=== PATIENT | female | born 1955 | race Caucasian/White ===

== ENCOUNTER 2019-06-16 13:44 | Outpatient (REF) | payer OTHER, MEDICARE, SELFPAY ==
[2019-06-16 21:28] LABS: Magnesium 1.8 mg/dL (1.8-2.4)
== END 2019-06-16 14:04 ==
LOC: NCHCN 13:44
PROVIDERS: PCP Nurse Practitioner Family; Visit Provider Nurse Practitioner Family
DX: J44.1 Chronic obstructive pulmonary disease with (acute) exacerbation (principal); R25.2 Cramp and spasm; F17.200 Nicotine dependence, unspecified, uncomplicated
CPT/HCPCS: 83735

== ENCOUNTER 2020-01-15 14:02 | Outpatient (REF) | payer OTHER, SELFPAY ==
[2020-01-15 21:03] LABS: Anion Gap 8.1 mmol/L (3-11); BUN 28 mg/dL (7-18); CO2 29.9 mmol/L (21.0-32.0); CREATININE 1.53 mg/dL (0.55-1.02); Calcium 9.2 mg/dL (8.5-10.1); Chloride 105 mmol/L (98-107); Estimated GFR 33.96 (mL/min/1.73m2); Glucose 87 mg/dL (74-106); Potassium 4.4 mmol/L (3.5-5.1); Sodium 143 mmol/L (136-145)
== END 2020-01-15 14:22 ==
LOC: NCHCN 14:02
PROVIDERS: PCP Nurse Practitioner Family; Visit Provider Nurse Practitioner Family
DX: I25.10 Atherosclerotic heart disease of native coronary artery without angina pectoris (principal); N11.9 Chronic tubulo-interstitial nephritis, unspecified
CPT/HCPCS: 80048

== ENCOUNTER 2020-03-14 13:01 | Outpatient (REF) | payer OTHER, SELFPAY ==
[2020-03-14 21:41] LABS: NT-proBNP 398 pg/mL (<300)
== END 2020-03-14 13:21 ==
LOC: NCHCN 13:01
PROVIDERS: PCP Nurse Practitioner Family; Visit Provider Nurse Practitioner Family
DX: I50.9 Heart failure, unspecified (principal)
CPT/HCPCS: 80048; 83880

== ENCOUNTER 2020-03-15 14:56 | Outpatient (REF) | payer OTHER, SELFPAY ==
[2020-03-15 20:47] LABS: Anion Gap 6.3 mmol/L (3-11); BUN 24 mg/dL (7-18); CO2 29.7 mmol/L (21.0-32.0); CREATININE 1.31 mg/dL (0.55-1.02); Calcium 8.7 mg/dL (8.5-10.1); Chloride 107 mmol/L (98-107); Estimated GFR 40.62 (mL/min/1.73m2); Glucose 105 mg/dL (74-106); Potassium 4.2 mmol/L (3.5-5.1); Sodium 143 mmol/L (136-145)
== END 2020-03-15 15:16 ==
LOC: NCHCN 14:56
PROVIDERS: PCP Nurse Practitioner Family; Visit Provider Nurse Practitioner Family
DX: R22.41 Localized swelling, mass and lump, right lower limb (principal); I25.2 Old myocardial infarction
CPT/HCPCS: 80048

== ENCOUNTER 2020-06-02 15:46 | Outpatient (REF) | payer OTHER, SELFPAY ==
[2020-06-06 10:05] LABS: Patient Race White; SARS-CoV-2 RNA Undetected (Undetected); SARS-CoV-2 Specimen Source Nasal
== END 2020-06-02 16:06 ==
LOC: NCHCN 15:46
PROVIDERS: PCP Nurse Practitioner Family; Visit Provider Nurse Practitioner Family
DX: R05 Cough (principal)
CPT/HCPCS: U0003

== ENCOUNTER 2020-12-19 16:42 | Outpatient (REF) | payer OTHER, SELFPAY ==
[2020-12-19 21:19] LABS: HCT 38.3 % (36.0-46.0); HGB 11.7 g/dL (11.2-15.7); MCH 25.9 pg (27.0-33.0); MCHC 30.5 % (32.0-36.0); MCV 84.7 fL (80-95); MPV 10.2 fL (8.0-11.0); Platelet Count 231 10^3/uL (130-400); RBC 4.52 10^6/uL (3.93-5.22); RDW 14.7 % (11.7-14.6); WBC 7.47 10^3/uL (4.4-10.8)
[2020-12-19 21:37] LABS: Hemoglobin A1C 6.2 % (<5.7)
[2020-12-19 21:58] LABS: ALT 22 U/L (14-59); AST 23 U/L (15-37); Albumin 3.9 g/dL (3.4-5.0); Alkaline Phosphatase 190 U/L (46-116); Anion Gap 8.8 mmol/L (3-11); BUN 22 mg/dL (7-18); Bilirubin, Total 0.4 mg/dL (0.2-1.0); CO2 27.2 mmol/L (21.0-32.0); CREATININE 1.4 mg/dL (0.55-1.02); Calcium 9.1 mg/dL (8.5-10.1); Chloride 107 mmol/L (98-107); Estimated GFR 37.51 (mL/min/1.73m2); Glucose 81 mg/dL (74-106); Potassium 4.3 mmol/L (3.5-5.1); Sodium 143 mmol/L (136-145); TSH 0.43 uIU/mL (0.36-3.74); Total Protein 7.5 g/dL (6.4-8.2); Vitamin B12 462 pg/mL (193-986)
== END 2020-12-19 16:43 | disposition home or self-care (01) ==
LOC: NCHCN 16:42
PROVIDERS: PCP Nurse Practitioner Family; Visit Provider Nurse Practitioner Family
DX: I10 Essential (primary) hypertension (principal); R73.9 Hyperglycemia, unspecified; K21.9 Gastro-esophageal reflux disease without esophagitis; K80.20 Calculus of gallbladder without cholecystitis without obstruction; Z79.01 Long term (current) use of anticoagulants; Z79.899 Other long term (current) drug therapy
CPT/HCPCS: 80053; 85027; 82607; 83036; 84443

== ENCOUNTER 2021-06-06 15:02 | Emergency (ER) | payer OTHER, SELFPAY ==
[2021-06-06] VITALS (22 sets, daily range): BP systolic 110–189; BP diastolic 60–93; PULSE 81–103; RESP 15–26; TEMP 36.8; O2SAT 90–100
--- NOTE | 2021-06-06 07:45 | RT.EKG_ITS ---
APPROVED REPORT Exam: Resting ECG Reason for Exam: new sob Patient Location: E HR:88 bpm ECG Measurements Heart Rate 88 AXIS PA 197 P -55 QRSd 92 QRS 42 QT 374 T 44 QTc 450 Conclusion Sinus or ectopic atrial rhythm...P axis (-45,135) Atrial premature complex...SV complex w/ short R-R interval
[2021-06-06 15:25] LABS: Bilirubin Negative (Negative); Blood Negative (Negative); Clarity Sl Cloudy (Clear); Glucose Negative (Negative); Ketones Negative (Negative); Leukocyte Esterase Small (Negative); Nitrite Positive (Negative); Urobilinogen 0.2 EU/dL (Up TO 0.2)
[2021-06-06 15:37] LABS: Bacteria Packed HPF (Negative); C & S Indicated? Yes; Crystals Negative HPF (Negative); Epithelial Cells Moderate HPF (Negative); Mucus Negative (Negative); RBC 0-2 HPF (0-2); WBC 20-50 HPF (0-5)
--- NOTE | 2021-06-06 15:45 | DI.CT_ITS ---
Exam(s) CT ABDOMEN PELVIS WO EXAM: CT ABDOMEN PELVIS WO CLINICAL HISTORY: RUQ abd pain, nausea vomiting, s/p monqiue in February. TECHNIQUE: Imaging Protocol: Axial computed tomography images with coronal and sagittal reformatted images were created and reviewed CONTRAST MATERIAL: Intravenous: none Oral: None COMPARISON: No exams were available for comparison FINDINGS: VISUALIZED LUNG BASES: No nodules nor pleural effusions evident. ABDOMEN: There is no ascites. LIVER: There are no obvious focal hepatic lesions evident of this noninfused study. GALLBLADDER/BILIARY/: The gallbladder is surgically absent. CBD diameter is prominent, measuring 1.3 cm just above the pancreatic head and 10 millimeters at the pancreatic head level. Subtle hypodense area noted in the uncinate process of the pancreas measuring 10 x 9 millimeters, possibly significan t. No other focal pancreatic findings evident on this noninfused study. The pancreatic duct is not dilated.. PANCREAS: ABOVE SPLEEN: Spleen is not enlarged. No obvious intrasplenic lesions. ADRENALS: There are no significant adrenal masses. KIDNEYS:No cysts evident. No solid renal masses. No calculi nor hydronephrosis.. Small calcification s medial to both kidneys are most probably vascular. ABDOMINAL AORTA: Calcified but not enlarged. LYMPH NODES: There is no retroperitoneal nor paraaortic adenopathy. ABDOMINAL WALL: No evidence of significant anterior abdominal wall nor inguinal hernia. GI: There is no evidence of bowel obstruction, free air, nor abscess. PELVIS: LYMPH NODES: There is no intrapelvic nor inguinal adenopathy. GI: The appendix is surgically absent.No evidence of sigmoid diverticulitis. URINARY BLADDER: No calculi nor obvious masses evident REPRODUCTIVE: Uterus and adnexal regions appear unremarkable. No free fluid. OSSEOUS: No significant osseous lesions. IMPRESSION: 1. Gallbladder surgically absent. CBD diameter is prominent measuring 13 millimeters proximally and 10 millimeters at the pancreatic head level. No obvious radiopaque calculus in the lower CBD. Howev er, there is a subtle 10 x 9 millimeter area of hypodensity in the uncinate process of the pancreas, possibly significant. This is difficult to evaluate accurately without IV contrast.. If this patien t cannot receive iodinated IV contrast for CT than MRI and MRCP would be recommended for follow-up of these findings related to the CBD/pancreas. 2. Appendix is surgically absent. No collection at this level. Also no evidence of diverticulitis. No bowel obstruction Study 1st read by [facility]. Final report called by myself to ER provider Saturday06/06/2021 6:50 p.m. RADIATION DOSE DELIVERED: 1,144.55mGy.cm Total DLP DATA REPOSITORY: All CT scans at this facility are submitted to the National Radiology Data Registry (NRDR) Dose Index Registry (DIR) with the [employer] (ACR). RADIATION OPTIMIZATION: All CT scans at this facility use at least one of these dose optimization te chniques: automated exposure control; mA and/or kV adjustment per patient size (includes targeted exa ms where dose is matched to clinical indication); or iterative reconstruction.
[2021-06-06 15:49] LABS: Abs Immature Grans 0.04 10^3/uL (0.0-0.06); Absolute Basophil Count 0.06 10^3/uL (0.0-0.2); Absolute Lymphocyte Count 2.45 10^3/uL (1.2-3.4); Absolute Monocyte Count 0.48 10^3/uL (0.1-0.8); Absolute Neutrophil Count 5.45 10^3/uL (1.2-6.7); Basophils % 0.7; Eosinophils % 2.3; HCT 43.7 % (36.0-46.0); HGB 13.6 g/dL (11.2-15.7); Immature Grans % 0.5; Lymphocytes % 28.2; MCH 25.6 pg (27.0-33.0); MCHC 31.1 % (32.0-36.0); MCV 82.1 fL (80-95); MPV 9.6 fL (8.0-11.0); Monocytes % 5.5; Neutrophils % 62.8; Nucleated RBC 0 %; Platelet Count 241 10^3/uL (130-400); RBC 5.32 10^6/uL (3.93-5.22); RDW 15.1 % (11.7-14.6); RDW-SD 45.3 fL; WBC 8.68 10^3/uL (4.4-10.8)
--- NOTE | 2021-06-06 15:54 | W.ED.GENAD ---
Discharge Plan Disposition Patient Disposition: HOME Condition: Stable Discharge Details Clinical Impression: Acute UTI, Abdominal pain Primary Care Provider: Karla Paul ED Provider: Ml Stanley Home Meds and New Rx's Prescriptions: New nitrofurantoin monohyd/m-cryst [Macrobid] 100 mg capsule 100 mg PO Q12H 7 Days Qty: 14 RF: 0 No Action atorvastatin 20 mg tablet 20 mg PO QHS RF: 0 ipratropium-albuterol 0.5 mg-3 mg(2.5 mg base)/3 mL solution for nebulization 3 ml INHALATION Q4H PRNRF: 0 omeprazole 40 mg capsule,delayed release(DR/EC) 40 mg PO BID RF: 0 tramadol 50 mg tablet 50 - 100 mg PO TID PRNRF: 0 triamcinolone acetonide 0.1 % cream 1 applic TOPICAL BID RF: 0 aspirin 81 mg Capsule,Delayed Release(Dr/Ec) 81 mg PO DAILY RF: 0 promethazine 25 mg tablet 25 mg PO BID PRNRF: 0 losartan 25 mg tablet 25 mg PO BID RF: 0 nitroglycerin 0.4 mg tablet, sublingual 0.4 mg sublingual DIRECTED PRNRF: 0 gabapentin 100 mg capsule 100 mg PO BID RF: 0 epinephrine [Epi E-Z Pen] 0.3 mg/0.3 mL Auto-Injector 0.3 mg IM Q5-15M PRNRF: 0 albuterol sulfate 90 mcg/actuation HFA aerosol inhaler 2 inh INHALATION Q4H PRNRF: 0 metoprolol tartrate 25 mg tablet 25 mg PO BID RF: 0 Xarelto 10 mg tablet 10 mg PO DAILY RF: 0 Anoro Ellipta 62.5-25 mcg/actuation blister with device 1 inh INHALATION DAILY RF: 0 Discharge Instructions Instructions: Urinary Tract Infection in Women (ED), Abdominal Pain (ED) Additional Instructions: At this time CT shows possible widening of your common bile duct which can be a normal finding after the surgery. Recommend that you have an MRCP as an outpatient. Please discuss this with your surgeon at [facility]. You also have a urinary tract infection. Clear liquids for the next 48 to 72 hours bland diet advance as tolerated. Please return to the ER for any more vomiting, fever, worsening shortness of breath or worsening pain not relieved by Tylenol or ibuprofen. Stay away from anything fried fatty spicy or dairy. Follow up with primary care provider in 3-5 days. Return to ED sooner if any worsening or concerns. Increase oral fluids. Please take Tylenol or Ibuprofen with food every 4-6 hours as needed for pain and swelling. Referrals: Karla Paul [Primary Care Provider] - 3 days Discharge Data Discharge Date/Time-TO BE ENTERED AT DEPARTURE: 06/06/21 19:28 Medical Decision Making 48-year-old female presents to the ER with chief right upper quadrant abdominal which is intermittent. She reports this got worse yesterday. She is status post cholecystectomy at [facility] in February of this year. She does report nausea and vomiting x1. He denies any diarrhea. Denies any new chest pain or new shortness of breath. She does have COPD inhalers every day she does report using her inhalers as prescribed. She denies any cough or fever or chills. She does have some expiratory wheezes noted on exam. Right upper quadrant tenderness with palpation. She has a past under past medical history includes high cholesterol, high blood pressure, GERD. At this time cardiac work-up included serial troponins EKG check labs including a lipase, CT abdomen pelvis morphine and Zofran. Differential diagnosis includes but not limited to pneumonia, COPD exacerbation, postop complication related to cholecystectomy, CBC shows no leukocytosis or signs of infection, renal function at patient's baseline. Alk phos is elevated at 194, urine shows positive nitrite small leukocytes 20-50 WBCs culture is pending at time. CT results as noted below. Imaging protocol: XR of the chest. Views: 2 views. COMPARISON: No relevant prior studies available. FINDINGS: Lungs: Unremarkable. No consolidation. Pleural spaces: Unremarkable. No pleural effusion. No pneumothorax. Heart/Mediastinum: Unremarkable. No cardiomegaly. Bones/joints: Reverse left shoulder arthroplasty. IMPRESSION: No acute findings Exam: CT Abdomen And Pelvis Without Contrast TECHNIQUE: Imaging protocol: Computed tomography of the abdomen and pelvis without contrast. COMPARISON: CR XR CHEST 2V PA LATERAL 06/06/2021 5:45 PM FINDINGS: Lungs: The lung bases are clear. Pleural spaces: No pleural effusion. Heart: The heart is normal in size. Trace pericardial fluid. Mediastinal space: Mild wall thickening within the distal esophagus. Small sliding hiatal hernia. Liver: The liver is normal in size and has a slightly lobulated appearance. Gallbladder and bile ducts: The gallbladder is surgically absent. No bile duct dilatation. The common bile duct is slightly prominent measuring up to 1.1 cm in diameter. This is within expected normal postoperative limits. Pancreas: The pancreas is normal appearance. No pancreatic ductal dilatation. Spleen: The spleen is normal in size and appearance. Adrenal glands: The bilateral adrenal glands are normal appearance. Kidneys and ureters: The bilateral kidneys are atrophic with cortical thinning and areas of cortical scarring. 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 No hydronephrosis. Stomach and bowel: Mild wall thickening is seen within the gastric folds and gastric antrum. The small bowel is nondilated and fluid-filled. A moderate amount of stool and air seen throughout the colon to the level of the rectum. No bowel obstruction or pneumatosis. Appendix: No evidence of appendicitis. Intraperitoneal space: No free fluid, free air or abscess. Vasculature: Moderate atherosclerotic calcifications within the abdominal aorta without aneurysm. Extensive atherosclerotic calcifications are seen within the origin of the right common iliac artery, likely resulting in severe stenosis. Please note, evaluation is limited on this noncontrast study. Lymph nodes: Unremarkable. No enlarged lymph nodes. Urinary bladder: The urinary bladder is normal appearance. Reproductive: The uterus and bilateral ovaries are normal appearance. Bones/joints: Mild degenerative changes throughout the lower thoracic and lumbar spine. No acute compression fracture. Soft tissues: Unremarkable. IMPRESSION: Findings suggestive of an infectious or inflammatory gastroenteritis. No bowel obstruction, abscess, free air or perforation. Probable mild distal esophagitis. Sliding hiatal hernia. Thank you for allowing us to participate in the care of your patient. Dictated and Authenticated by: Shauna Wong MD Spoke with Dr. Vinson radiologist who recommends an outpatient MRCP. He does not appreciate any infectious or inflammatory gastroenteritis at this time as noted in the V rad reading above. These recommendations were relayed to the patient. Instructed to follow-up with PCP and surgeon at [facility] regarding this. Patient hemodynamically stable discharge from the department. Instructed on diet and alternating ibuprofen Tylenol. HPI General Date/Time Provider Initiated Documentation: 06/06/21 15:11. Limitations to Documentation: no limitations. Information obtained by: patient and RN notes reviewed. HPI Narrative: 48-year-old female presents to the ER with chief right upper quadrant abdominal which is intermittent. She reports this got worse yesterday. She is status post cholecystectomy at [facility] in February of this year. She does report nausea and vomiting x1. He denies any diarrhea. Denies any new chest pain or new shortness of breath. She does have COPD inhalers every day she does report using her inhalers as prescribed. She denies any cough or fever or chills. She does have some expiratory wheezes noted on exam. Right upper quadrant tenderness with palpation. She has a past under past medical history includes high cholesterol, high blood pressure, GERD. Related Data Home Medications Medication Instructions Recorded Confirmed albuterol sulfate 2 inh INHALATION Q4H PRN 06/06/21 06/06/21 aspirin 81 mg PO DAILY 06/06/21 06/06/21 atorvastatin 20 mg PO QHS 06/06/21 06/06/21 epinephrine [Epi E-Z Pen] 0.3 mg IM Q5-15M PRN 06/06/21 06/06/21 gabapentin 100 mg PO BID 06/06/21 06/06/21 ipratropium-albuterol 3 ml INHALATION Q4H PRN 06/06/21 06/06/21 losartan 25 mg PO BID 06/06/21 06/06/21 metoprolol tartrate 25 mg PO BID 06/06/21 06/06/21 nitrofurantoin monohyd/m-cryst 100 mg PO Q12H 7 Days #14 cap 06/06/21 [Macrobid] nitroglycerin 0.4 mg SUBLINGUAL DIRECTED PRN 06/06/21 06/06/21 omeprazole 40 mg PO BID 06/06/21 06/06/21 promethazine 25 mg PO BID PRN 06/06/21 06/06/21 rivaroxaban [Xarelto] 10 mg PO DAILY 06/06/21 06/06/21 tramadol 50 - 100 mg PO TID PRN 06/06/21 06/06/21 triamcinolone acetonide 1 applic TOPICAL BID 06/06/21 06/06/21 umeclidinium-vilanterol [Anoro 1 inh INHALATION DAILY 06/06/21 06/06/21 Ellipta] Previous Rx's Medication Instructions Recorded nitrofurantoin monohyd/m-cryst 100 mg PO Q12H 7 Days #14 cap 06/06/21 [Macrobid] Allergies Allergy/AdvReac Type Severity Reaction Status Date / Time amoxicillin Allergy Unverified 06/06/21 15:51 hydrochlorothiazide Allergy Unverified 06/06/21 15:51 influenza virus vaccine tv Allergy Unverified 06/06/21 15:51 split 2012- (5 yr,up) [From Afluria] latex Allergy Unverified 06/06/21 15:51 lisinopril Allergy Unverified 06/06/21 15:51 Penicillins Allergy Skin Rash Unverified 06/06/21 15:30 povidone-iodine Allergy Skin Rash Unverified 06/06/21 15:30 [From Betadine] tetanus and diphtheria Allergy Unverified 06/06/21 15:51 toxoids General Stated Complaint: Abd Prob JA: 2 Review of Systems All systems reviewed & are unremarkable except as noted in HPI and below Respiratory Respiratory: Reports as per HPI, Reports cough and Reports wheezing Comments: History of COPD Gastrointestinal Gastrointestinal: Reports as per HPI, Reports abdominal pain, Reports nausea and Reports vomiting Comments: Right upper quadrant abdominal pain status post cholecystectomy Allergic/Immunologic Allergic/Immunologic: Reports wheezing [facility] Social History Smoking/Tobacco Use Status: Current every day Tobacco Type: cigarettes Smoking risk assessment performed?: Yes Alcohol Intake: current Alcohol Intake frequency: a few times a month Alcohol type: hard liquor Substance use type: does not use Do you feel safe at home: Yes Do you feel safe in your relationship?: Yes Exam Narrative Exam Narrative: Constitutional: Alert and oriented x3. Appears stated age. Normal body habitus. Head: Normocephalic, no trauma. Eyes: Pupils PERRLA, Red reflex noted, EOM's intact. Eyelids symmetrical without lesions, discharge, or swelling. ENT: Bilateral TM's WNL, External ear normal to inspection, no mastoid TTP, swelling, or erythema, Nasal turbinates WNL, no nasal discharge. Normal dentition, Posterior pharynx WNL, no exudate. Chest: RRR, Normal S1, S2, distal pulses intact. Resp: Lungs expiratory wheezes scattered throughout. Abdomen: Soft tender with palpation right upper quadrant. Nondistended no masses palpated. Hypoactive bowel sounds noted. Musculoskeletal: Unable to assess gait. 5/5 strength to all four extremities. Skin: No suspicious rashes or lesions. Capillary refill less than 2 sec. Neurologic: Cranial nerves II-XII intact. Alert and oriented x 3. DTR's intact. Hematologic/Lymphatic: No ecchymosis, no lymphadenopathy. Course Vital Signs Vital signs: Vital Signs Temperature 36.8 C 06/06/21 15:19 Pulse 86 06/06/21 15:19 Respiratory Rate 26 H 06/06/21 15:19 Blood Pressure 189/93 H 06/06/21 15:19 Pulse Oximetry 98 06/06/21 15:19 Temperature 36.8 C 06/06/21 15:19 Temperature Source Temporal Artery Scan 06/06/21 15:19 Pulse 86 06/06/21 15:19 Respiratory Rate 26 H 06/06/21 15:19 Respiratory Effort Accessory Muscle Use 06/06/21 15:26 Blood Pressure 189/93 H 06/06/21 15:19 Blood Pressure Position Sitting 06/06/21 15:19 Pulse Oximetry 98 06/06/21 15:19 Oxygen Delivery Method Room Air 06/06/21 15:19 Oxygen Flow Rate 0 06/06/21 15:19 Pain Level 8 06/06/21 15:19 Lab/Test Results Lab/Test Results: 06/06/21 15:18 Urine - Reflex from Ua Urine Culture - Pending Laboratory Tests Range/Units 06/06/21 06/06/21 11:35 15:18 WBC (4.4-10.8) 10^3/uL 8.68 RBC (3.93-5.22) 10^6/uL 5.32 H Hgb (11.2-15.7) g/dL 13.6 Hct (36.0-46.0) % 43.7 MCV (80-95) fL 82.1 MCH (27.0-33.0) pg 25.6 L MCHC (32.0-36.0) % 31.1 L RDW (11.7-14.6) % 15.1 H Plt Count (130-400) 10^3/uL 241 MPV (8.0-11.0) fL 9.6 Immature Gran % 0.5 Neutrophils % 62.8 Lymphocytes % 28.2 Monocytes % 5.5 Eosinophils % 2.3 Basophils % 0.7 Nucleated RBC % % 0 Absolute Neutrophils (1.2-6.7) 10^3/uL 5.45 Absolute Lymphocytes (1.2-3.4) 10^3/uL 2.45 Absolute Monocytes (0.1-0.8) 10^3/uL 0.48 Absolute Eosinophils (0.0-0.7) 10^3/uL 0.20 Absolute Basophils (0.0-0.2) 10^3/uL 0.06 Urine Color (Yellow) Yellow Urine Clarity (Clear) Sl Cloudy Urine pH (5-8) 6.0 Ur Specific [place] (1.005-1.025) 1.010 Urine Protein (Negative) mg/dL Negative Urine Ketones (Negative) mg/dL Negative Urine Blood (Negative) Negative Urine Nitrite (Negative) Positive H Urine Bilirubin (Negative) Negative Urine Urobilinogen (Up TO 0.2) EU/dL 0.2 Ur Leukocyte Esterase (Negative) Small H Urine RBC (0-2) HPF 0-2 Urine WBC (0-5) HPF 20-50 H Ur Epithelial Cells (Negative) HPF Moderate Urine Crystals (Negative) HPF Negative Urine Bacteria (Negative) HPF Packed Urine Mucus (Negative) Negative Ur Culture Indicated? Yes Urine Glucose (Negative) mg/dL Negative
[2021-06-06] MEDS: Ondansetron 4 MG/2 ML VIAL IVP (16:08)
[2021-06-06 16:14] LABS: ALT 24 U/L (14-59); AST 22 U/L (15-37); Albumin 3.8 g/dL (3.4-5.0); Alkaline Phosphatase 194 U/L (46-116); Anion Gap 5.5 mmol/L (3-11); BUN 16 mg/dL (7-18); Bilirubin, Total 0.6 mg/dL (0.2-1.0); CO2 31.5 mmol/L (21.0-32.0); CREATININE 1.1 mg/dL (0.55-1.02); Calcium 9.5 mg/dL (8.5-10.1); Chloride 106 mmol/L (98-107); Estimated GFR 49.39 (mL/min/1.73m2); Glucose 85 mg/dL (74-106); Magnesium 1.9 mg/dL (1.8-2.4); Potassium 4.5 mmol/L (3.5-5.1); Sodium 143 mmol/L (136-145); Total Protein 7.8 g/dL (6.4-8.2)
[2021-06-06 16:28] LABS: Troponin I < 0.05 ng/mL (<0.06)
--- NOTE | 2021-06-06 16:30 | DI.RAD_ITS ---
Exam(s) XR CHEST 2V PA LATERAL EXAM: XR CHEST 2V PA LATERAL CLINICAL HISTORY: Hx COPD, wheezing. TECHNIQUE: 2D digital imaging was performed. COMPARISON: No exams were available for comparison FINDINGS: There is mild cardiomegaly. The mediastinum is not widened. Calcification is noted in the aortic ar ch. There are no confluent infiltrates nor pleural effusions. Symmetrical densities over both upper lobe s consistent with 1st costochondral junctions. No ominous pulmonary nodules. No pulmonary edema. N o pneumothorax. Reverse left shoulder prosthesis noted. IMPRESSION: No acute pulmonary findings.Other findings as above. DATA REPOSITORY: RADIATION DOSE DELIVERED:
[2021-06-06 16:35] LABS: Lipase 92 U/L (73-393)
[2021-06-06] MEDS: Albuterol/Ipratropium 3 ML UPD VIAL UPD (17:09)
--- NOTE | 2021-06-06 18:00 | NUR.NOTE ---
Patient reports relief after inhalation treatment. States 'It made me cough, So i know it makes it better. Nursing Note:
[2021-06-06] MEDS: Nicotine 21 MG/24 HR PATCH (18:37)
--- NOTE | 2021-06-06 18:39 | DI.VRAD_ITS ---
PROCEDURE INFORMATION: Exam: CT Abdomen And Pelvis Without Contrast Exam date and time: 06/06/2021 3:54 PM Age: 66 years old Clinical indication: Nausea and vomiting; Prior surgery; Surgery date: 1-6 months; Surgery type: Lillian TECHNIQUE: Imaging protocol: Computed tomography of the abdomen and pelvis without contrast. COMPARISON: CR XR CHEST 2V PA LATERAL 06/06/2021 5:45 PM FINDINGS: Lungs: The lung bases are clear. Pleural spaces: No pleural effusion. Heart: The heart is normal in size. Trace pericardial fluid. Mediastinal space: Mild wall thickening within the distal esophagus. Small sliding hiatal hernia. Liver: The liver is normal in size and has a slightly lobulated appearance. Gallbladder and bile ducts: The gallbladder is surgically absent. No bile duct dilatation. The common bile duct is slightly prominent measuring up to 1.1 cm in diameter. This is within expected normal postoperative limits. Pancreas: The pancreas is normal appearance. No pancreatic ductal dilatation. Spleen: The spleen is normal in size and appearance. Adrenal glands: The bilateral adrenal glands are normal appearance. Kidneys and ureters: The bilateral kidneys are atrophic with cortical thinning and areas of cortical scarring. 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 No hydronephrosis. Stomach and bowel: Mild wall thickening is seen within the gastric folds and gastric antrum. The small bowel is nondilated and fluid-filled. A moderate amount of stool and air seen throughout the colon to the level of the rectum. No bowel obstruction or pneumatosis. Appendix: No evidence of appendicitis. Intraperitoneal space: No free fluid, free air or abscess. Vasculature: Moderate atherosclerotic calcifications within the abdominal aorta without aneurysm. Extensive atherosclerotic calcifications are seen within the origin of the right common iliac artery, likely resulting in severe stenosis. Please note, evaluation is limited on this noncontrast study. Lymph nodes: Unremarkable. No enlarged lymph nodes. Urinary bladder: The urinary bladder is normal appearance. Reproductive: The uterus and bilateral ovaries are normal appearance. Bones/joints: Mild degenerative changes throughout the lower thoracic and lumbar spine. No acute compression fracture. Soft tissues: Unremarkable. IMPRESSION: Findings suggestive of an infectious or inflammatory gastroenteritis. No bowel obstruction, abscess, free air or perforation. Probable mild distal esophagitis. Sliding hiatal hernia. Dictated and Authenticated by: Shauna Wong MD. Ordering:DON Bull MD
--- NOTE | 2021-06-06 18:40 | DI.VRAD_ITS ---
PROCEDURE INFORMATION: Exam: XR Chest Exam date and time: 06/06/2021 4:40 PM Age: 66 years old Clinical indication: Other: HX copd, wheezing; Prior surgery TECHNIQUE: Imaging protocol: XR of the chest. Views: 2 views. COMPARISON: No relevant prior studies available. FINDINGS: Lungs: Unremarkable. No consolidation. Pleural spaces: Unremarkable. No pleural effusion. No pneumothorax. Heart/Mediastinum: Unremarkable. No cardiomegaly. Bones/joints: Reverse left shoulder arthroplasty. IMPRESSION: No acute findings. Dictated and Authenticated by: Shauna Wong MD. Ordering:DON Bull MD
[2021-06-06] MEDS: Normal Saline Flush 10 ML SYR IVP (18:58)
[2021-06-06 19:10] LABS: Troponin I < 0.05 ng/mL (<0.06)
[2021-06-06] MEDS: MacroBID 100 MG CAP PO (19:27)
== END 2021-06-06 19:28 | disposition home or self-care (01) ==
PROVIDERS: Emergency Provider Registered Nurse Emergency; PCP Nurse Practitioner Family
DX: N39.0 Urinary tract infection, site not specified (principal); B96.20 Unspecified Escherichia coli [E. coli] as the cause of diseases classified elsewhere; R10.11 Right upper quadrant pain
CPT/HCPCS: 36415; 80053; 83690; 87077; 93005; 96374; 96375; 99284; 71046; 74176; 81003; 81015; 83735; 84484; 85025; 87086; 87186; 93010; J2405; J7620

== ENCOUNTER 2021-07-03 22:34 | Outpatient (REF) | payer OTHER, SELFPAY ==
[2021-07-05 11:37] LABS: COVID-19 RT-PCR UVMMC Result Negative (Negative)
== END 2021-07-03 22:35 | disposition home or self-care (01) ==
LOC: NCHCN 22:34
PROVIDERS: PCP Nurse Practitioner Family; Visit Provider Nurse Practitioner Family
DX: Z20.822 Contact with and (suspected) exposure to COVID-19 (principal); J06.9 Acute upper respiratory infection, unspecified
CPT/HCPCS: U0003; U0005

== ENCOUNTER 2021-07-27 13:19 | Outpatient (REF) | payer MEDICARE, SELFPAY ==
[2021-07-27 21:53] LABS: ESR 32 mm/hr (0-30)
[2021-07-28 08:48] LABS: C-Reactive Protein 1.97 mg/dL (0.0-0.3)
== END 2021-07-27 13:20 | disposition home or self-care (01) ==
LOC: NCHCN 13:19
PROVIDERS: PCP Nurse Practitioner Family; Visit Provider Nurse Practitioner Family
DX: R51.9 Headache, unspecified (principal)
CPT/HCPCS: 85652; 86140

== ENCOUNTER 2021-10-30 17:14 | Outpatient (REF) | payer MEDICARE, SELFPAY ==
[2021-10-30 21:16] LABS: HCT 44.5 % (36.0-46.0); HGB 13.5 g/dL (11.2-15.7); MCH 25.1 pg (27.0-33.0); MCHC 30.3 % (32.0-36.0); MCV 82.7 fL (80-95); MPV 10.3 fL (8.0-11.0); Platelet Count 245 10^3/uL (130-400); RBC 5.38 10^6/uL (3.93-5.22); RDW 15.1 % (11.7-14.6); RDW-SD 46.1 fL; WBC 8.54 10^3/uL (4.4-10.8)
[2021-10-30 21:48] LABS: Vitamin D 25 Total 42.7 ng/mL (30-100)
[2021-10-30 21:53] LABS: ALT 17 U/L (14-59); AST 16 U/L (15-37); Albumin 3.8 g/dL (3.4-5.0); Alkaline Phosphatase 162 U/L (46-116); Anion Gap 9.3 mmol/L (3-11); BUN 22 mg/dL (7-18); Bilirubin, Total 0.5 mg/dL (0.2-1.0); CO2 29.7 mmol/L (21.0-32.0); CREATININE 1.2 mg/dL (0.55-1.02); Calcium 9.3 mg/dL (8.5-10.1); Chloride 105 mmol/L (98-107); Estimated GFR 44.68 (mL/min/1.73m2); Glucose 76 mg/dL (74-106); Magnesium 1.7 mg/dL (1.8-2.4); Potassium 4.2 mmol/L (3.5-5.1); Sodium 144 mmol/L (136-145); TSH 0.44 uIU/mL (0.36-3.74); Total Protein 7.1 g/dL (6.4-8.2); Vitamin B12 382 pg/mL (193-986)
[2021-10-30 22:05] LABS: Creatine Kinase 111 U/L (26-192)
== END 2021-10-30 17:15 | disposition home or self-care (01) ==
LOC: NCHCN 17:14
PROVIDERS: PCP Nurse Practitioner Family; Visit Provider Nurse Practitioner Family
DX: M60.9 Myositis, unspecified (principal); Z79.899 Other long term (current) drug therapy
CPT/HCPCS: 80053; 82306; 82550; 85027; 82607; 83735; 84443

== ENCOUNTER 2022-06-25 16:10 | Outpatient (REF) | payer MEDICARE, SELFPAY ==
[2022-06-25 21:27] LABS: ALT 17 U/L (14-59); AST 27 U/L (15-37); Albumin 3.7 g/dL (3.4-5.0); Alkaline Phosphatase 146 U/L (46-116); BUN 22 mg/dL (7-18); Bilirubin, Total 0.4 mg/dL (0.2-1.0); CREATININE 1.5 mg/dL (0.55-1.02); Calcium 9.5 mg/dL (8.5-10.1); Chloride 103 mmol/L (98-107); Estimated GFR 37.49 (mL/min/1.73m2); GGT 25 U/L (5-55); Glucose 61 mg/dL (74-106); Potassium 5.5 mmol/L (3.5-5.1); Sodium 140 mmol/L (136-145); Total Protein 7.6 g/dL (6.4-8.2)
[2022-06-25 22:03] LABS: Hemoglobin A1C 6.1 % (<5.7)
== END 2022-06-25 16:11 | disposition home or self-care (01) ==
LOC: NCHCN 16:10
PROVIDERS: PCP Nurse Practitioner Family; Visit Provider Nurse Practitioner Family
DX: R73.03 Prediabetes (principal); J44.9 Chronic obstructive pulmonary disease, unspecified; I25.10 Atherosclerotic heart disease of native coronary artery without angina pectoris; R53.83 Other fatigue
CPT/HCPCS: 80053; 82977; 83036

== ENCOUNTER → 2022-09-05 12:43 | Outpatient (BNVA) | payer MEDICARE, SELFPAY | PROVIDERS: PCP Nurse Practitioner Family; Referring Provider Nurse Practitioner Family; Visit Provider Psychiatry & Neurology Neurology | DX: R29.2 Abnormal reflex (principal); F32.A Depression, unspecified; G47.00 Insomnia, unspecified; E53.8 Deficiency of other specified B group vitamins; J44.9 Chronic obstructive pulmonary disease, unspecified; F17.210 Nicotine dependence, cigarettes, uncomplicated; I12.9 Hypertensive chronic kidney disease with stage 1 through stage 4 chronic kidney disease, or unspecified chronic kidney disease; N18.9 Chronic kidney disease, unspecified; R26.89 Other abnormalities of gait and mobility; R41.3 Other amnesia | CPT/HCPCS: 99215 ==

== ENCOUNTER 2022-10-15 02:21 | Outpatient (CLI) | payer MEDICARE, SELFPAY ==
--- NOTE | 2022-10-15 08:00 | DI.MRI_ITS ---
Exam(s) MR CERVICAL SPINE WO EXAM: MR CERVICAL SPINE WO CLINICAL HISTORY: hyper reflexia: L Babinski,BALANCE PROBLEMS, R26.89 TECHNIQUE: Multiplanar multisequence MRI of the cervical spine was performed without intravenous con trast. COMPARISON: No exams were available for comparison FINDINGS: The examination is limited due to patient motion artifact. BONES: Vertebral body heights are maintained. Intervertebral disc spaces are normal. Alignment is nor mal. Bone marrow signal intensity is within normal limits. CERVICAL CORD: Craniovertebral junction is unremarkable. The cervical cord is normal size and signal intensity. SOFT TISSUES: Unremarkable. C2-3: No disc herniation or bulge is identified. No significant central spinal canal or neural forami nal stenosis. C3-4: No disc herniation or bulge is identified. No significant central spinal canal or neural forami nal stenosis C4-5: No disc herniation or bulge is identified. No significant central spinal canal or neural forami nal stenosis C5-6: There is prominence of the osteophyte disc complex. Degenerative changes of the uncovertebral joints are seen bilaterally causing bilateral neural foraminal narrowing, left greater than right. N o significant central spinal canal stenosis. C6-7: There is mild prominence of the osteophyte disc complex. No significant central spinal canal s tenosis is seen. No right neural foraminal stenosis is seen. There does appear to be prominence of the left uncovertebral joint causing mild narrowing of the left neural foramen. C7-T1: No disc herniation or bulge is identified. No significant central spinal canal or neural jeferson inal stenosis IMPRESSION: 1. Examination is significantly limited due to patient motion artifact. 2. Multilevel degenerative changes in the cervical spine resulting in neural foraminal narrowing as d escribed above. DATA REPOSITORY:
--- NOTE | 2022-10-15 08:00 | DI.MRI_ITS ---
Exam(s) MR BRAIN WO EXAM: MR BRAIN WO CLINICAL HISTORY: memory loss,R41.3 TECHNIQUE: Multiplanar multisequence MRI of the brain was performed. COMPARISON: No exams were available for comparison FINDINGS: The examination is limited due to patient motion artifact. VENTRICLES AND EXTRA AXIAL SPACES: Normal in size and morphology for the patient's age. MIDLINE SHIFT: None. CEREBRAL PARENCHYMA: No focus of restricted diffusion to suggest acute infarct. No space-occupying le sheridan identified. There are multiple areas of hyperintense signal in the white matter on the T2 and FL AIR images most consistent with small vessel ischemic disease. HEMORRHAGE: None. BRAINSTEM/CEREBELLUM: Normal. CALVARIUM: Normal. VISUALIZED PARANASAL SINUSES/MASTOIDS:Clear. [employer] [place]: Normal flow void. PITUITARY GLAND: Unremarkable. OTHER FINDINGS: None. IMPRESSION: 1. No evidence of an acute infarct or intracranial mass. 2. Multiple areas of hyperintense T2 signal on the FLAIR and T2 weighted images. Primary diagnostic concern is for small vessel ischemic disease. Other causes include migraines, demyelinating disease or trauma. DATA REPOSITORY:
== END 2022-10-15 02:41 ==
PROVIDERS: PCP Nurse Practitioner Family; Visit Provider Psychiatry & Neurology Neurology
DX: R41.3 Other amnesia (principal); R26.89 Other abnormalities of gait and mobility; R29.2 Abnormal reflex; M50.322 Other cervical disc degeneration at C5-C6 level; M50.323 Other cervical disc degeneration at C6-C7 level; I67.89 Other cerebrovascular disease
CPT/HCPCS: 70551; 72141

== ENCOUNTER → 2023-02-04 12:46 | Outpatient (BNVA) | payer MEDICARE, SELFPAY | PROVIDERS: PCP Nurse Practitioner Family; Referring Provider Nurse Practitioner Family; Visit Provider Psychiatry & Neurology Neurology | DX: R26.89 Other abnormalities of gait and mobility (principal); R41.3 Other amnesia; G47.00 Insomnia, unspecified; F32.A Depression, unspecified | CPT/HCPCS: 99214 ==

== ENCOUNTER 2023-03-20 13:09 | Outpatient (REF) | payer MEDICARE, SELFPAY ==
[2023-03-20 21:32] LABS: ALT 20 U/L (14-59); AST 23 U/L (15-37); Albumin 3.5 g/dL (3.4-5.0); Alkaline Phosphatase 129 U/L (46-116); Anion Gap 7.5 mmol/L (3-11); BUN 16 mg/dL (7-18); Bilirubin, Total 0.4 mg/dL (0.2-1.0); CO2 30.5 mmol/L (21.0-32.0); CREATININE 1.3 mg/dL (0.55-1.02); Calcium 9.3 mg/dL (8.5-10.1); Chloride 104 mmol/L (98-107); Estimated GFR 44.51 (mL/min/1.73m2); Glucose 91 mg/dL (74-106); Potassium 5.1 mmol/L (3.5-5.1); Sodium 142 mmol/L (136-145); Total Protein 7.2 g/dL (6.4-8.2)
[2023-03-20 22:27] LABS: Hemoglobin A1C 5.9 % (<5.7)
[2023-03-20 22:45] LABS: Vitamin B12 1262 pg/mL (193-986)
== END 2023-03-20 13:10 | disposition home or self-care (01) ==
LOC: NCHCN 13:09
PROVIDERS: Psychiatry & Neurology Neurology; PCP Nurse Practitioner Family; Visit Provider Nurse Practitioner Family
DX: N18.9 Chronic kidney disease, unspecified (principal); G62.9 Polyneuropathy, unspecified; I10 Essential (primary) hypertension; R73.03 Prediabetes; R26.89 Other abnormalities of gait and mobility
CPT/HCPCS: 80053; 82607; 83036

== ENCOUNTER → 2023-05-07 12:19 | Outpatient (BNVA) | payer MEDICARE, SELFPAY | PROVIDERS: PCP Nurse Practitioner Family; Referring Provider Nurse Practitioner Family; Visit Provider Psychiatry & Neurology Neurology | DX: R26.89 Other abnormalities of gait and mobility (principal); R41.3 Other amnesia; F32.A Depression, unspecified; G47.00 Insomnia, unspecified; I12.9 Hypertensive chronic kidney disease with stage 1 through stage 4 chronic kidney disease, or unspecified chronic kidney disease; N18.9 Chronic kidney disease, unspecified; J44.9 Chronic obstructive pulmonary disease, unspecified; Z72.0 Tobacco use | CPT/HCPCS: 99214 ==

== ENCOUNTER 2023-09-23 16:14 | Outpatient (REF) | payer MEDICARE, SELFPAY ==
[2023-09-23 21:28] LABS: HCT 41.9 % (36.0-46.0); MCH 25.3 pg (27.0-33.0); MCV 82 fL (80-95); MPV 10.1 fL (8.0-11.0); Platelet Count 252 10^3/uL (130-400); RBC 5.13 10^6/uL (3.93-5.22); RDW 14.6 % (11.7-14.6); RDW-SD 43.5 fL; WBC 10.82 10^3/uL (4.4-10.8)
[2023-09-23 21:58] LABS: Hemoglobin A1C 5.8 % (<5.7)
[2023-09-23 22:14] LABS: ALT 15 U/L (14-59); AST 19 U/L (15-37); Albumin 3.2 g/dL (3.4-5.0); Alkaline Phosphatase 129 U/L (46-116); Anion Gap 5.1 mmol/L (3-11); BUN 29 mg/dL (7-18); Bilirubin, Total 0.4 mg/dL (0.2-1.0); CO2 28.9 mmol/L (21.0-32.0); CREATININE 2.7 mg/dL (0.55-1.02); Calcium 8.9 mg/dL (8.5-10.1); Chloride 105 mmol/L (98-107); Glucose 92 mg/dL (74-106); Potassium 4.4 mmol/L (3.5-5.1); Sodium 139 mmol/L (136-145); Vitamin B12 1758 pg/mL (193-986)
== END 2023-09-23 16:15 | disposition home or self-care (01) ==
LOC: NCHCN 16:14
PROVIDERS: PCP Nurse Practitioner Family; Visit Provider Nurse Practitioner Family
DX: R73.03 Prediabetes (principal); I10 Essential (primary) hypertension; Z79.01 Long term (current) use of anticoagulants; Z86.718 Personal history of other venous thrombosis and embolism; E53.8 Deficiency of other specified B group vitamins; I25.10 Atherosclerotic heart disease of native coronary artery without angina pectoris
CPT/HCPCS: 80053; 85027; 82607; 83036

== ENCOUNTER 2023-10-02 18:20 | Outpatient (REF) | payer MEDICARE, SELFPAY ==
[2023-10-02 21:14] LABS: ALT 16 U/L (14-59); AST 17 U/L (15-37); Albumin 3.4 g/dL (3.4-5.0); Alkaline Phosphatase 134 U/L (46-116); Anion Gap 8.1 mmol/L (3-11); BUN 34 mg/dL (7-18); Bilirubin, Total 0.3 mg/dL (0.2-1.0); CO2 29.9 mmol/L (21.0-32.0); CREATININE 2.2 mg/dL (0.55-1.02); Calcium 9.4 mg/dL (8.5-10.1); Chloride 106 mmol/L (98-107); Estimated GFR 23.53 (mL/min/1.73m2); Glucose 89 mg/dL (74-106); Potassium 5.2 mmol/L (3.5-5.1); Sodium 144 mmol/L (136-145); Total Protein 7.4 g/dL (6.4-8.2)
== END 2023-10-02 18:21 | disposition home or self-care (01) ==
LOC: NCHCN 18:20
PROVIDERS: PCP Nurse Practitioner Family; Visit Provider Nurse Practitioner Family
DX: N17.9 Acute kidney failure, unspecified (principal)
CPT/HCPCS: 80053

== ENCOUNTER 2023-10-09 16:13 | Outpatient (REF) | payer MEDICARE, SELFPAY ==
[2023-10-09 22:05] LABS: Anion Gap 8.5 mmol/L (3-11); BUN 27 mg/dL (7-18); CO2 28.5 mmol/L (21.0-32.0); COMMENT (LAB VIEW ONLY) 90.33 mg/dL; CREATININE 1.9 mg/dL (0.55-1.02); Calcium 9.5 mg/dL (8.5-10.1); Chloride 111 mmol/L (98-107); Estimated GFR 28.06 (mL/min/1.73m2); Glucose 90 mg/dL (74-106); Microalb ug/mg Crea 63.1 ug/mg Cr; Sodium 148 mmol/L (136-145)
== END 2023-10-09 16:14 | disposition home or self-care (01) ==
LOC: NCHCN 16:13
PROVIDERS: PCP Nurse Practitioner Family; Visit Provider Nurse Practitioner Family
DX: I10 Essential (primary) hypertension (principal); N17.9 Acute kidney failure, unspecified
CPT/HCPCS: 80048; 82043; 82570

== ENCOUNTER → 2024-01-21 15:02 | Outpatient (BNVA) | payer MEDICARE, SELFPAY | PROVIDERS: PCP Nurse Practitioner Family; Visit Provider Psychiatry & Neurology Neurology | DX: R26.89 Other abnormalities of gait and mobility (principal); R41.3 Other amnesia | CPT/HCPCS: 99214 ==

== ENCOUNTER 2024-02-21 14:58 | Outpatient (REF) | payer MEDICARE, SELFPAY ==
[2024-02-21 21:02] LABS: HCT 45.5 % (36.0-46.0); HGB 14.1 g/dL (11.2-15.7); MCH 26.6 pg (27.0-33.0); MCV 86 fL (80-95); MPV 10.1 fL (8.0-11.0); Platelet Count 239 10^3/uL (130-400); RDW-SD 43.9 fL; WBC 9.57 10^3/uL (4.4-10.8)
[2024-02-21 21:08] LABS: Anion Gap 10.1 mmol/L (3-11); BUN 23 mg/dL (7-18); CO2 27.9 mmol/L (21.0-32.0); CREATININE 1.7 mg/dL (0.55-1.02); Calcium 9.6 mg/dL (8.5-10.1); Chloride 106 mmol/L (98-107); Estimated GFR 32.06 (mL/min/1.73m2); Glucose 118 mg/dL (74-106); Potassium 5.1 mmol/L (3.5-5.1); Sodium 144 mmol/L (136-145)
[2024-02-21 21:17] LABS: Hemoglobin A1C 5.9 % (<5.7)
== END 2024-02-21 14:59 | disposition home or self-care (01) ==
LOC: NCHCN 14:58
PROVIDERS: PCP Nurse Practitioner Family; Visit Provider Internal Medicine
DX: R73.03 Prediabetes (principal)
CPT/HCPCS: 80048; 85027; 83036

== ENCOUNTER 2025-08-31 12:05 | Outpatient (REF) | payer MEDICARE, SELFPAY ==
[2025-08-31 14:18] LABS: HCT 41.1 % (36.0-46.0); HGB 13.0 g/dL (11.2-15.7); MCH 27.8 pg (27.0-33.0); MCHC 31.6 % (32.0-36.0); MCV 88 fL (80-95); MPV 9.7 fL (8.0-11.0); Platelet Count 216 10^3/uL (130-400); RBC 4.68 10^6/uL (3.93-5.22); RDW 14.8 % (11.7-14.6); RDW-SD 47.7 fL; WBC 7.77 10^3/uL (4.4-10.8)
[2025-08-31 15:41] LABS: Hemoglobin A1C 5.2 % (<5.7)
[2025-08-31 16:34] LABS: ALT 25 U/L (10-49); AST 26 U/L (<34); Albumin 4.3 g/dL (3.2-5.0); Alkaline Phosphatase 144 U/L (46-116); Anion Gap 9.2 mmol/L (3-11); BUN 28 mg/dL (9-23); Bilirubin, Total 0.4 mg/dL (0.2-1.2); CO2 26.8 mmol/L (20.0-31.0); Calcium 9.5 mg/dL (8.3-10.6); Chloride 109 mmol/L (98-107); Cholesterol 150 mg/dL (<200); Glucose 120 mg/dL (74-106); HDL Cholesterol 81 mg/dL (>40); Potassium 4.6 mmol/L (3.5-5.1); Sodium 145 mmol/L (136-145); Total Protein 7.0 g/dL (5.7-8.2)
== END 2025-08-31 12:06 | disposition home or self-care (01) ==
LOC: NCHCN 12:05
PROVIDERS: PCP Nurse Practitioner Family; Visit Provider Nurse Practitioner Family
DX: R73.03 Prediabetes (principal); N18.9 Chronic kidney disease, unspecified; I25.10 Atherosclerotic heart disease of native coronary artery without angina pectoris; I10 Essential (primary) hypertension
CPT/HCPCS: 80053; 80061; 85027; 83036